=== PATIENT | female | born 2005 | race African-American/Black ===

== ENCOUNTER 2023-04-14 11:41 | Emergency (ER) | payer OTHER ==
[~2023-04-14] VITALS: Ht 167.6 cm; Wt 56.0 kg
[2023-04-14 12:05] VITALS: BP 120/82; O2SAT 100
[2023-04-14] MEDS ORDERED: LIDOCAINE HCL/PF 1% 10 MG/ML 5ML VIAL INFIL ONE (13:45)
[2023-04-14] MEDS ORDERED: BACITRACIN ZINC OINT UDPKT TOP ONE (15:00)
[2023-04-14 15:05] VITALS: PULSE 133; RESP 18; TEMP 98.9
== END 2023-04-14 15:06 | disposition home or self-care (01) ==
LOC: ER 11:54
DX: S01.112A Laceration without foreign body of left eyelid and periocular area, initial encounter (principal); W01.0XXA Fall on same level from slipping, tripping and stumbling without subsequent striking against object, initial encounter; Y93.89 Activity, other specified; Y92.89 Other specified places as the place of occurrence of the external cause; Y99.8 Other external cause status
CPT/HCPCS: 12011; 99282; Z7610

== ENCOUNTER 2023-04-26 14:26 | Emergency (ER) | payer OTHER ==
[~2023-04-26] VITALS: Ht 157.5 cm; Wt 49.9 kg
[2023-04-26 14:40] VITALS: BP 112/66; PULSE 83; RESP 16; TEMP 98.2; O2SAT 99
== END 2023-04-26 14:52 | disposition home or self-care (01) ==
LOC: ER 14:26
DX: S01.81XA Laceration without foreign body of other part of head, initial encounter (principal); W18.39XA Other fall on same level, initial encounter; Y93.89 Activity, other specified; Y92.89 Other specified places as the place of occurrence of the external cause; Y99.8 Other external cause status
CPT/HCPCS: 99281

== ENCOUNTER 2023-07-16 11:34 | Emergency (ER) | payer SELFPAY ==
[~2023-07-16] VITALS: Ht 167.6 cm; Wt 56.2 kg
[2023-07-16 11:55] VITALS: BP 92/48; PULSE 77; RESP 18; TEMP 98.6; O2SAT 100
[2023-07-16 13:12] LABS: CLARITY URINE CLOUDY (CLEAR); COLOR URINE DARK YELLOW (YELLOW); GLUCOSE URINE NEGATIVE (NEGATIVE); KETONES URINE TRACE (NEGATIVE); LEUKOCYTE ESTERASE URINE 1+ (NEGATIVE); NITRITE URINE NEGATIVE (NEGATIVE); OCCULT BLOOD URINE NEGATIVE (NEGATIVE); PH URINE 6.5 (4.5-8.0); PROTEIN URINE 4+ (NEGATIVE); SPECIFIC GRAVITY URINE 1.031 (1.005-1.030)
[2023-07-16 13:51] LABS: MUCUS URINE 3+ /lpf (< = 2+); SQUAMOUS EPITHELIAL CELL URINE 3+ /lpf (RARE/1+)
[2023-07-16 13:52] LABS: RBC URINE 0-2 /hpf (0-2)
[2023-07-16 13:54] LABS: BACTERIA URINE 3+
[2023-07-16] MEDS ORDERED: NAPR-681 MT (20:47)
[2023-07-16] MEDS ORDERED: FLUC150T46 MT (20:47)
[2023-07-16] MEDS ORDERED: DOXY-456 MT (20:47)
[2023-07-16] MEDS: LIDOCAINE HCL 1% 20ML VIAL (Pyxis) INJ INFIL ONE (20:56)
[2023-07-16] MEDS: CEFTRIAXONE SODIUM 1G VIAL IM ONE (20:56)
[2023-07-19 04:07] LABS: CHLAMYDIA TRACHOMATIS NAA Negative (Negative); NEISSERIA GONORRHOEAE NAA Negative (Negative)
== END 2023-07-16 20:59 | disposition home or self-care (01) ==
LOC: ER 11:34
DX: N75.0 Cyst of Bartholin's gland (principal); B37.89 Other sites of candidiasis
CPT/HCPCS: 87491; 87591; 81003; 81025; 87210; 96372; 99283; J0696; Z7610 ×2